=== PATIENT | male | born 1935 | race Two or more races ===

== ENCOUNTER 2018-06-15 21:14 | Inpatient (IN) | payer OTHER ==
[~2018-06-15] VITALS: Ht 170.2 cm; Wt 69.9 kg
[2018-06-15 22:04] LABS: HEMATOCRIT. 37.6 % (42.0-52.0); HEMOGLOBIN. 12.5 g/dL (14.0-18.0); MEAN CORPUSCULAR VOLUME 99.5 fL (80.0-94.0); MEAN PLATELET VOLUME 7.6 fl (7.4-10.4); PLATELET 235 x1000/uL (130-400); RED BLOOD CELL COUNT 3.78 mill/uL (4.7-6.1); RED CELL DISTRIBUTION WIDTH 13.7 % (11.6-14.6)
[2018-06-15 22:08] LABS: CHLORIDE 101 mEq/L (98-107)
[2018-06-15 22:09] LABS: INR 1.1; PROTHROMBIN TIME 10.8 sec (9.1-11.1)
[2018-06-15 22:20] LABS: PLATELET ESTIMATE NORMAL
[2018-06-15] MEDS ORDERED: SODIUM CHLORIDE 0.9% 1000ML BAG (SEPSIS BOLUS) IV ONE (22:45)
[2018-06-15] MEDS ORDERED: PIPERACILLIN/TAZ 3.375G PREMIX 50 ML IV NR (22:45)
[2018-06-15 23:46] LABS: CLARITY URINE TURBID (CLEAR); COLOR URINE DARK YELLOW (YELLOW); KETONES URINE TRACE (NEGATIVE); LEUKOCYTE ESTERASE URINE 3+ (NEGATIVE); NITRITE URINE POSITIVE (NEGATIVE); OCCULT BLOOD URINE 3+ (NEGATIVE); PROTEIN URINE 2+ (NEGATIVE); SPECIFIC GRAVITY URINE 1.017 (1.005-1.030)
[2018-06-15] MEDS: VANCOMYCIN 1 G PREMIX 200 ML IV NR ×2 (23:52→23:53)
[2018-06-16] VITALS (13 sets, daily range): BP systolic 100–141; BP diastolic 53–80
[2018-06-16] MEDS ORDERED: PIPERACILLIN/TAZ 2.25G PREMIX 50 ML IV SCH (08:45)
[2018-06-16] MEDS ORDERED: PIPERACILLIN/TAZ 2.25G PREMIX 50 ML IV NR (09:20)
[2018-06-16 10:48] LABS: BASOPHILS % 0.6 % (0.0-2.0); EOSINOPHILS % 0.3 % (0.0-5.0); HEMATOCRIT. 34.8 % (42.0-52.0); HEMOGLOBIN. 11.5 g/dL (14.0-18.0); MEAN CORPUSCULAR VOLUME 99.6 fL (80.0-94.0); MEAN PLATELET VOLUME 7.6 fl (7.4-10.4); MONOCYTES % 6.7 % (2.0-8.0); NEUTROPHILS % 83.4 % (40.0-76.0); PLATELET 210 x1000/uL (130-400); RED BLOOD CELL COUNT 3.49 mill/uL (4.7-6.1)
[2018-06-16 10:55] LABS: CHLORIDE 106 mEq/L (98-107)
[2018-06-16] MEDS ORDERED: ATEN-42 MT (12:00)
[2018-06-16] MEDS ORDERED: FAMO40TA7 MT (12:00)
[2018-06-16] MEDS ORDERED: LOSA25TA12 MT (12:00)
[2018-06-16] MEDS ORDERED: SILD20TA MT (12:00)
[2018-06-16] MEDS ORDERED: ONDANSETRON HCL 4MG/2ML INJ IV PRN (15:00)
[2018-06-16] MEDS ORDERED: NA PHOS,M-B/NA PHOS,DI-BA ENEMA 118ML PR PRN (15:00)
[2018-06-16] MEDS ORDERED: CLONIDINE 0.1MG TABLET PO PRN (15:00)
[2018-06-16] MEDS ORDERED: DIPHENHYDRAMINE 50MG/ML VIAL IV PRN (15:00)
[2018-06-16] MEDS ORDERED: ACETAMINOPHEN 325MG TABLET PO PRN (15:00)
[2018-06-16] MEDS ORDERED: ACETAMINOPHEN 650MG SUPP PR PRN (15:00)
[2018-06-16] MEDS ORDERED: HYDROCODONE/ACETAMINOPHEN 5/325MG TABLET PO PRN (15:00)
[2018-06-16] MEDS ORDERED: IPRATROPIUM/ALBUTEROL 0.5-3(2.5)MG/3ML NEB INH PRN (15:00)
[2018-06-16] MEDS ORDERED: ENOXAPARIN 40MG/0.4ML SYR SUBCUT SCH (15:00)
[2018-06-16] MEDS ORDERED: MAGNESIUM/ALUMINUM HYDROXIDE/SIMETHICONE 30ML UDC PO PRN (15:00)
[2018-06-16] MEDS ORDERED: GUAIFENESIN 200MG/10ML SUGAR FREE UDC PO PRN (15:00)
[2018-06-16] MEDS ORDERED: ACETAMINOPHEN 650MG/20.3ML UDC GT PRN (15:00)
[2018-06-16] MEDS ORDERED: DOCUSATE SODIUM 100MG CAPSULE PO PRN (15:00)
[2018-06-16] MEDS: PIPERACILLIN/TAZ 2.25G PREMIX 50 ML IV SCH ×2 (15:30→20:43)
[2018-06-16] MEDS: ENOXAPARIN 30MG/0.3ML SYR SUBCUT SCH (15:31)
[2018-06-16] MEDS: SODIUM CHLORIDE 0.9% 1,000 ML IV SCH (15:31)
[2018-06-16] MEDS: SODIUM CHLORIDE 0.9% INJ 3ML FLUSH IVF SCH (20:50)
[2018-06-16] MEDS ORDERED: FAMOTIDINE 20MG TABLET PO SCH (21:00)
[2018-06-17] VITALS (11 sets, daily range): BP systolic 103–119; BP diastolic 50–67
[2018-06-17] MEDS: PIPERACILLIN/TAZ 2.25G PREMIX 50 ML IV SCH ×3 (03:31→14:29)
[2018-06-17] MEDS: SODIUM CHLORIDE 0.9% 1,000 ML IV SCH ×2 (03:32→17:22)
[2018-06-17] MEDS: SODIUM CHLORIDE 0.9% INJ 3ML FLUSH IVF SCH ×2 (05:03→14:29)
[2018-06-17] MEDS: ENOXAPARIN 30MG/0.3ML SYR SUBCUT SCH (08:06)
[2018-06-17] MEDS ORDERED: ATENOLOL 25MG TABLET PO SCH (09:00)
[2018-06-17 09:12] LABS: HEMATOCRIT. 34.2 % (42.0-52.0); HEMOGLOBIN. 11.3 g/dL (14.0-18.0); MEAN CORPUSCULAR VOLUME 99.6 fL (80.0-94.0); MEAN PLATELET VOLUME 7.9 fl (7.4-10.4); PLATELET 196 x1000/uL (130-400); RED BLOOD CELL COUNT 3.44 mill/uL (4.7-6.1); RED CELL DISTRIBUTION WIDTH 13.8 % (11.6-14.6)
[2018-06-17 09:28] LABS: CHLORIDE 106 mEq/L (98-107)
[2018-06-17 09:34] LABS: LDL CHOLESTEROL 51 mg/dL (5-100)
[2018-06-17 09:36] LABS: HDL CHOLESTEROL 25 mg/dL (40-59)
[2018-06-17] MEDS ORDERED: PIPE3.376 IV (12:24)
[2018-06-17] MEDS ORDERED: POTASSIUM CHLORIDE 20MEQ TABLET SR PO SCH (12:30)
[2018-06-17 12:33] LABS: PLATELET ESTIMATE NORMAL
== END 2018-06-17 22:04 | disposition short-term general hospital (02) | DRG 871 ==
LOC: EDBD 21:14 → ER 21:14 → 5EST 06-16 00:47 → EDBEDREQDT 06-16 00:54 → EDBEDREQTM 06-16 00:54 → EDBEDREQSVC 06-16 00:54 → EDBEDREQ 06-16 00:54 → ENRESERV 06-16 07:33
PROVIDERS: ADMIT Family Medicine; ATTEND Family Medicine
DX: A41.50 Gram-negative sepsis, unspecified (principal); N17.0 Acute kidney failure with tubular necrosis; E87.2 Acidosis; E44.1 Mild protein-calorie malnutrition; N39.0 Urinary tract infection, site not specified; I10 Essential (primary) hypertension; R73.9 Hyperglycemia, unspecified; K21.9 Gastro-esophageal reflux disease without esophagitis; D63.8 Anemia in other chronic diseases classified elsewhere; Z90.49 Acquired absence of other specified parts of digestive tract; Z79.899 Other long term (current) drug therapy; Z68.24 Body mass index [BMI] 24.0-24.9, adult
CPT/HCPCS: 36415; 71045; 80061; 82962; 83605; 83880; 84145; 84484; 87077; 87186; 87804; 93005; 93970; 96365; 96366; 96367; 96375; 99291; J1650; J2543; J3370; J7030; J7040

== ENCOUNTER 2022-06-25 04:56 | Emergency (ER) | payer OTHER ==
[~2022-06-25] VITALS: Ht 180.3 cm; Wt 70.0 kg
[~2022-06-25 04:56] MED LIST: ATEN-42 MT; FAMO40TA7 MT; LOSA25TA26 MT; PIPE3.376 IV; SILD20TA MT
[2022-06-25 05:13] VITALS: BP 155/78
== END 2022-06-25 12:13 | disposition left against medical advice (07) ==
LOC: ER 04:56
DX: R07.89 Other chest pain (principal); R94.31 Abnormal electrocardiogram [ECG] [EKG]
CPT/HCPCS: 71101; 93005; 99283

== ENCOUNTER 2023-08-02 06:25 | Emergency (ER) | payer OTHER ==
[~2023-08-02] VITALS: Ht 180.3 cm; Wt 68.0 kg
[2023-08-02 06:28] VITALS: O2SAT 97
[2023-08-02] MEDS: ACETAMINOPHEN 325MG TABLET PO ONE (07:50)
[2023-08-02 07:55] LABS: BASOPHILS % 0.6 % (0.0-2.0); EOSINOPHILS % 1.6 % (0.0-5.0); HEMOGLOBIN. 12.2 g/dL (14.0-18.0); LYMPHOCYTES % 35.1 % (20.0-50.0); MEAN CORPUSCULAR HEMOGLOBIN 32.8 pg (28.0-32.0); MEAN CORPUSCULAR HGB CONC 33.8 g/dL (31.0-37.0); MEAN PLATELET VOLUME 6.7 fl (7.4-10.4); MONOCYTES % 8.1 % (2.0-8.0); NEUTROPHILS % 54.6 % (40.0-76.0); PLATELET 166 x1000/uL (130-400); RED BLOOD CELL COUNT 3.71 mill/uL (4.7-6.1); WHITE BLOOD COUNT 5.1 x1000/uL (4.5-11.0)
[2023-08-02 08:31] LABS: ALANINE AMINOTRANSFERASE 8 IU/L (10-49); ALBUMIN 4.3 g/dL (3.2-4.8); ASPARTATE AMINOTRANSFERASE 22 IU/L (<34); BILIRUBIN TOTAL 0.7 mg/dL (0.1-1.0); CALCIUM 9.5 mg/dL (8.7-10.4); CARBON DIOXIDE 29 mEq/L (21-32); CHLORIDE 103 mEq/L (98-107); CREATININE 1.4 mg/dL (0.6-1.3); GLUCOSE 93 mg/dL (70-105); POTASSIUM 3.6 mEq/L (3.5-5.1); PROTEIN TOTAL 7.5 g/dL (6.0-8.3); SODIUM 138 mEq/L (136-145); TROPONIN I HIGH SENSITIVITY 13 ng/L (3.0-53); UREA NITROGEN BLOOD 16 mg/dL (9-23)
[2023-08-02] MEDS ORDERED: AMLODIPINE 10MG TABLET PO ONE (09:00)
[2023-08-02] MEDS: OXYCODONE HCL/ACETAMINOPHEN 5/325MG TABLET PO ONE (10:07)
[2023-08-02] MEDS: AMLODIPINE 5MG TABLET PO SCH (10:08)
[2023-08-02 12:37] VITALS: BP 161/70; PULSE 70; RESP 15; TEMP 98.1
== END 2023-08-02 12:49 | disposition short-term general hospital (02) ==
LOC: ER 06:25 → EDBEDREQ 11:36 → EDBEDREQTM 11:36 → ER 12:49 → CANBEDREQ 08-05 00:24
DX: M25.552 Pain in left hip (principal); I10 Essential (primary) hypertension; Z79.899 Other long term (current) drug therapy
CPT/HCPCS: 36415; 71045; 72170; 73552; 80053; 83880; 84484; 85025; 93005; 99285

== ENCOUNTER 2023-12-15 12:57 | Emergency (ER) | payer MEDICARE, OTHER ==
[~2023-12-15] VITALS: Ht 165.1 cm; Wt 59.0 kg
[~2023-12-15 12:57] MED LIST changes: +AMLO5TAB88 PO; +ATOR10TA69 PO; +LOSA1TAB40 PO
[2023-12-15 13:12] VITALS: O2SAT 98
[2023-12-15 14:14] LABS: BASOPHILS % 0.6 % (0.0-2.0); EOSINOPHILS % 1.3 % (0.0-5.0); HEMATOCRIT. 34.6 % (42.0-52.0); HEMOGLOBIN. 11.7 g/dL (14.0-18.0); LYMPHOCYTES % 32.2 % (20.0-50.0); MEAN CORPUSCULAR HEMOGLOBIN 33.5 pg (28.0-32.0); MEAN CORPUSCULAR HGB CONC 33.9 g/dL (31.0-37.0); MEAN PLATELET VOLUME 7.6 fl (7.4-10.4); MONOCYTES % 10.1 % (2.0-8.0); NEUTROPHILS % 55.8 % (40.0-76.0); PLATELET 216 x1000/uL (130-400); RED BLOOD CELL COUNT 3.49 mill/uL (4.7-6.1); WHITE BLOOD COUNT 7.2 x1000/uL (4.5-11.0)
[2023-12-15 14:27] LABS: CHLORIDE 104 mEq/L (98-107); POTASSIUM 5.3 mEq/L (3.5-5.1); SODIUM 136 mEq/L (136-145)
[2023-12-15 14:28] LABS: CALCIUM 9.8 mg/dL (8.7-10.4); CARBON DIOXIDE 27 mEq/L (21-32)
[2023-12-15 14:33] LABS: CREATININE 1.4 mg/dL (0.6-1.3); GLUCOSE 96 mg/dL (70-105); TROPONIN I HIGH SENSITIVITY 6 ng/L (3.0-53); UREA NITROGEN BLOOD 22 mg/dL (9-23)
[2023-12-15] MEDS: LIDOCAINE HCL 1% 20ML VIAL INFIL ONE (17:10)
[2023-12-15 17:49] VITALS: BP 145/65; PULSE 58; RESP 12; TEMP 98.2
== END 2023-12-15 17:49 | disposition home or self-care (01) ==
LOC: ER 13:50
DX: S01.112A Laceration without foreign body of left eyelid and periocular area, initial encounter (principal); R29.6 Repeated falls; E78.00 Pure hypercholesterolemia, unspecified; I10 Essential (primary) hypertension; Z79.899 Other long term (current) drug therapy; W18.39XA Other fall on same level, initial encounter; Y93.89 Activity, other specified; Y92.89 Other specified places as the place of occurrence of the external cause; Y99.8 Other external cause status
CPT/HCPCS: 99285; 70450; 71045; 80048; 83880; 85025; 84484; 36415; 12013; 93005; J3490